=== PATIENT | female | born 1960 | race Caucasian/White ===

== ENCOUNTER → 2017-05-06 | Outpatient (CLI) | payer OTHER ==
[~2017-05-06] MED LIST: ACID1TAB7 PO; CARB200T3 PO; CARB200T4 PO; ESTR0.5G TD; HYDR20TA22 PO; LACT1CAP37 PO; LAMO100T PO; LAMO50TA3 PO; LAMO5TB.2 PO; LEVE750T37 PO; MULT-154 PO; MULT-672 PO; POLY17PO5 PO; POTASSIUM PO; PRAS25TA PO; RANI300T PO; TRAZ100T15 PO; VITAMIN D PO; VITAMIN E PO; ZOLP12.54 PO; ZONI100C2 PO; ZONI25CA PO
[2017-05-06 11:44] LABS: HEMATOCRIT 44.5 % (34.6-47.8); HEMOGLOBIN 14.9 g/dL (11.7-16.4); WHITE BLOOD COUNT 3.3 x10^3/uL (3.4-10)
[2017-05-06 11:55] LABS: ASPARTATE AMINO TRANSFERASE 29 U/L (15-37); BLOOD UREA NITROGEN 11 mg/dL (7-18)
== END | disposition home or self-care (01) ==
LOC: STAR 10:42
PROVIDERS: ATTEND Oral & Maxillofacial Surgery
DX: Z01.818 Encounter for other preprocedural examination (principal); M26.69 Other specified disorders of temporomandibular joint; R79.1 Abnormal coagulation profile; G40.909 Epilepsy, unspecified, not intractable, without status epilepticus; Z90.710 Acquired absence of both cervix and uterus; Z79.899 Other long term (current) drug therapy; Z88.8 Allergy status to other drugs, medicaments and biological substances; Z96.698 Presence of other orthopedic joint implants
CPT/HCPCS: 36415; 71020; 80053; 85025; 85610; 85730; 93005

== ENCOUNTER 2017-05-11 11:21 | Day surgery (SDC) | payer OTHER ==
[~2017-05-11] VITALS: Ht 152.4 cm; Wt 52.6 kg
[~2017-05-11 11:21] MED LIST changes: +BUPIVACAINE/PF 0.5% ONE; +EPINEPHRINE 1 MG/ML, 1ML ONE; +LIDOCAINE/PF 1%, 30ML ONE; +NEO/BACI/POLY/HC OINT 15GM ONE; +NEO/POLY/HC EAR SUSP 10ML ONE; +OXYMETAZOLINE NASAL SPRAY 0.05%, 15ML ONE
[2017-05-11] MEDS ORDERED: LACTATED RINGERS 1,000 ML IV SCH (11:39)
[2017-05-11 12:13] VITALS: BP 109/69
[2017-05-11] MEDS ORDERED: TRAZ100T15 PO (12:20)
[2017-05-11] MEDS ORDERED: MIDAZOLAM 1 MG/ML, 2ML ONE (12:42)
[2017-05-11] MEDS ORDERED: OXYMETAZOLINE NASAL SPRAY 0.05%, 15ML ONE (12:43)
[2017-05-11] MEDS ORDERED: FENTANYL PF 100 MCG/2ML ONE ×2 (12:43→17:10)
[2017-05-11] MEDS ORDERED: BUPIVACAINE/PF 0.5% ONE (12:44)
[2017-05-11] MEDS ORDERED: LIDOCAINE/PF 1%, 30ML ONE (12:44)
[2017-05-11] MEDS ORDERED: NEO/BACI/POLY/HC OINT 15GM ONE (12:44)
[2017-05-11] MEDS ORDERED: EPINEPHRINE 1 MG/ML, 1ML ONE (12:44)
[2017-05-11] MEDS ORDERED: NEO/POLY/HC EAR SUSP 10ML ONE (12:44)
[2017-05-11] MEDS ORDERED: SUCCINYLCHOLINE 20 MG/ML, 10ML ONE (13:22)
[2017-05-11] MEDS ORDERED: DEXAMETHASONE 4 MG/ML, 1ML ONE (13:22)
[2017-05-11] MEDS ORDERED: ROCURONIUM 10 MG/ML ONE (13:22)
[2017-05-11] MEDS ORDERED: ONDANSETRON 2MG/ML, 2ML ONE (13:22)
[2017-05-11] MEDS ORDERED: CEFAZOLIN 1,000 MG ONE (13:22)
[2017-05-11] MEDS ORDERED: PROPOFOL 10 MG/ML, 20ML ONE (13:22)
[2017-05-11] MEDS ORDERED: HYDROcodone/APAP 7.5-325MG/15ML UDC PO PRN (13:30)
[2017-05-11] MEDS ORDERED: EPHEDRINE 50 MG/ML, 1ML IVPush PRN (13:30)
[2017-05-11] MEDS ORDERED: ALBUTEROL SULFATE 2.5 MG/3 ML NPPB PRN (13:30)
[2017-05-11] MEDS ORDERED: LABETALOL 5MG/ML, 20ML IV PRN (13:30)
[2017-05-11] MEDS ORDERED: METOPROLOL 1 MG/ML, 5ML IV PRN (13:30)
[2017-05-11] MEDS ORDERED: METOCLOPRAMIDE 5 MG/ML, 2ML IV PRN (13:30)
[2017-05-11] MEDS ORDERED: hydrALAzine 20 MG/ML, 1ML IV PRN (13:30)
[2017-05-11] MEDS ORDERED: KETOROLAC 30 MG/1 ML IV PRN (13:30)
[2017-05-11] MEDS ORDERED: MIDAZOLAM 1 MG/ML, 2ML IV PRN (13:30)
[2017-05-11] MEDS ORDERED: ACETAMINOPHEN 325 MG TABLET PO PRN (13:30)
[2017-05-11] MEDS ORDERED: ONDANSETRON 2MG/ML, 2ML IVPush PRN (13:30)
[2017-05-11] MEDS ORDERED: NEOSPORIN OINT, 15GM ONE (16:25)
[2017-05-11] MEDS ORDERED: HYDROmorphone 2 MG/ML, 1ML ONE (17:10)
[2017-05-11] MEDS: FENTANYL PF 100 MCG/2ML IV PRN ×2 (17:15→17:23)
[2017-05-11] MEDS: HYDROmorphone 1 MG/ML, 1ML IV PRN ×4 (17:25→17:44)
[2017-05-11] MEDS ORDERED: KETOROLAC 30 MG/1 ML ONE (18:29)
[2017-05-11] MEDS ORDERED: HYDROmorphone 4MG TABLET PO PRN (18:30)
[2017-05-11] MEDS ORDERED: KETOROLAC 30 MG/1 ML IVPush SCH (18:30)
[2017-05-11] MEDS ORDERED: HYDROmorphone 2MG TABLET ONE (18:50)
== END 2017-05-11 20:20 ==
LOC: OUT 11:21
PROVIDERS: ATTEND Oral & Maxillofacial Surgery
DX: M26.69 Other specified disorders of temporomandibular joint (principal); M26.632 Articular disc disorder of left temporomandibular joint; M26.622 Arthralgia of left temporomandibular joint; J45.909 Unspecified asthma, uncomplicated; K21.9 Gastro-esophageal reflux disease without esophagitis; Z88.6 Allergy status to analgesic agent; Z88.5 Allergy status to narcotic agent; Z90.710 Acquired absence of both cervix and uterus; Z98.890 Other specified postprocedural states
CPT/HCPCS: 21240; 88304; 88311; J0171; J0330; J0690; J1100; J1170; J1885; J2250; J2405; J2704; J3010; J3490; J7120

== ENCOUNTER → 2017-09-08 | Outpatient (CLI) | payer OTHER ==
[~2017-09-08] MED LIST changes: -BUPIVACAINE/PF 0.5% ONE; -EPINEPHRINE 1 MG/ML, 1ML ONE; -LIDOCAINE/PF 1%, 30ML ONE; -NEO/BACI/POLY/HC OINT 15GM ONE; -NEO/POLY/HC EAR SUSP 10ML ONE; -OXYMETAZOLINE NASAL SPRAY 0.05%, 15ML ONE
== END | disposition home or self-care (01) ==
LOC: CFH 10:49
DX: Z12.31 Encounter for screening mammogram for malignant neoplasm of breast (principal); N80.9 Endometriosis, unspecified
CPT/HCPCS: 77063; G0202

== ENCOUNTER 2017-09-14 13:29 | Emergency (ER) | payer OTHER ==
[~2017-09-14] VITALS: Ht 154.9 cm; Wt 54.0 kg
[2017-09-14] MEDS ORDERED: LAMOTRIGINE 200 MG TABLET PO ONE (14:00)
[2017-09-14 14:22] LABS: HEMATOCRIT 39.9 % (34.6-47.8); HEMOGLOBIN 13.6 g/dL (11.7-16.4); WHITE BLOOD COUNT 3.3 x10^3/uL (3.4-10)
[2017-09-14 14:23] LABS: BLOOD UREA NITROGEN 20 mg/dL (7-18)
[2017-09-14 15:49] VITALS: BP 110/78
== END 2017-09-14 15:51 | disposition home or self-care (01) ==
LOC: ED 15:45
DX: R56.9 Unspecified convulsions (principal); G43.909 Migraine, unspecified, not intractable, without status migrainosus; Z90.49 Acquired absence of other specified parts of digestive tract
CPT/HCPCS: 36415; 80048; 82040; 85025; 99284

== ENCOUNTER 2018-01-24 21:44 | Inpatient (IN) | payer OTHER, MEDICARE ==
[~2018-01-24] VITALS: Ht 152.4 cm; Wt 58.7 kg
[2018-01-24] MEDS ORDERED: LORazepam 1MG TABLET PO ONE (22:00)
[2018-01-24 22:19] LABS: BASOPHILS # (AUTO) 0.02 x10^3/uL (0-0.1); BASOPHILS % (AUTO) 1 % (0-1); EOSINOPHILS # (AUTO) 0.01 x10^3/uL (0-0.4); EOSINOPHILS % (AUTO) 0 % (1-7); LYMPHOCYTES # (AUTO) 1.28 x10^3/uL (1-3.4); LYMPHOCYTES % (AUTO) 36 % (22-44); MD NO; MEAN CORPUSCULAR HEMOGLOBIN 30.2 pg (27.0-34.8); MEAN CORPUSCULAR HGB CONC 33.5 g/dL (32.4-35.8); MEAN CORPUSCULAR VOLUME 90.2 fL (80-100); MEAN PLATELET VOLUME 6.5 fL (7.4-10.4); MONOCYTES # (AUTO) 0.36 x10^3/uL (0.2-0.8); MONOCYTES % (AUTO) 10 % (2-9); NEUTROPHILS # (AUTO) 1.92 x10^3/uL (1.8-6.8); NEUTROPHILS % (AUTO) 53 % (42-75); PLATELET COUNT 255 x10^3/uL (130-400); RED BLOOD COUNT 4.07 x10^6/uL (3.82-5.3)
[2018-01-24 22:29] LABS: ALANINE AMINOTRANSFERASE 42 U/L (12-78); ALBUMIN 3.7 g/dL (3.4-5.0); ANION GAP 8 mmol/L (5-15); CALCIUM 8.7 mg/dL (8.5-10.1); CHLORIDE 109 mmol/L (98-107); CREATININE 1.31 mg/dL (0.55-1.02)
[2018-01-24] MEDS ORDERED: DIPHENHYDRAMINE 25 MG CAPSULE PO ONE (22:30)
[2018-01-24 22:31] LABS: ALKALINE PHOSPHATASE 93 U/L (45-117); BILIRUBIN,TOTAL 0.2 mg/dL (0.2-1.0); TOTAL PROTEIN 6.3 g/dL (6.4-8.2)
[2018-01-24] MEDS ORDERED: LORazepam 1MG TABLET ONE (23:10)
[2018-01-24] MEDS ORDERED: DIPHENHYDRAMINE 25 MG CAPSULE ONE (23:10)
[2018-01-24 23:59] LABS: MICROSCOPIC NOT IND
[2018-01-25 00:01] LABS: CULTURE INDICATED? NO
[2018-01-25] MEDS: SODIUM CHLORIDE 0.9% 1,000 ML IV SCH ×2 (00:03→08:34)
[2018-01-25 00:10] LABS: AMPHETAMINE SCREEN, URINE Negative (Negative); BARBITURATE SCREEN, URINE Negative (Negative); BENZODIAZEPINE SCREEN, URINE Negative (Negative); CANNABINOID SCREEN, URINE Negative (Negative); COCAINE SCREEN, URINE Negative (Negative); METHADONE SCREEN, URINE Negative (Negative); OPIATE SCREEN, URINE Negative (Negative)
[2018-01-25] MEDS ORDERED: DOCUSATE 100 MG CAPSULE PO PRN (00:30)
[2018-01-25] MEDS ORDERED: POLYETHYLENE GLYCOL 17 GM PACKET PO PRN (00:30)
[2018-01-25] MEDS ORDERED: BISACODYL 10 MG SUPP PR PRN (00:30)
[2018-01-25] MEDS ORDERED: ONDANSETRON 2MG/ML, 2ML IVPush PRN (00:30)
[2018-01-25] MEDS: HEPARIN 5,000 UNITS/ML, 1ML SQ SCH ×3 (00:30→16:53)
[2018-01-25] MEDS ORDERED: ACETAMINOPHEN 325 MG TABLET PO PRN (00:30)
[2018-01-25] MEDS ORDERED: hydrALAzine 20 MG/ML, 1ML IVPush PRN (00:30)
[2018-01-25] MEDS ORDERED: LABETALOL 5MG/ML, 20ML IVPush PRN (00:30)
[2018-01-25] MEDS: LAMOTRIGINE 100 MG TABLET PO SCH ×3 (00:30→21:21)
[2018-01-25 00:34] LABS: HEMOGLOBIN A1C 4.5 % (4.2-6.3)
[2018-01-25 00:35] LABS: FREE T4 (FREE THYROXINE) 0.94 ng/dL (0.76-1.46); THYROID STIMULATING HORMONE 2.45 mIU/L (0.358-3.740)
[2018-01-25] MEDS: ZONISAMIDE 50 MG CAPSULE PO SCH ×2 (03:27→21:21)
[2018-01-25] MEDS ORDERED: LORazepam 2 MG/ML, 1ML ONE ×2 (03:32→06:12)
[2018-01-25] MEDS: LORazepam 2 MG/ML, 1ML IVPush PRN ×2 (03:34→06:20)
[2018-01-25] MEDS ORDERED: HEPARIN 5,000 UNITS/ML, 1ML ONE ×2 (05:34→08:28)
[2018-01-25] MEDS ORDERED: ASPIRIN 325 MG TABLET EC ONE (08:30)
[2018-01-25] MEDS: ASPIRIN 325 MG TABLET EC PO SCH (08:34)
[2018-01-25] MEDS ORDERED: MULTIVITAMIN 1 TABLET PO SCH (09:00)
[2018-01-25] MEDS: MULTIVITAMINS/MINERALS TABLET PO SCH (09:50)
[2018-01-25] MEDS: FAMOTIDINE 40 MG TABLET PO SCH (09:50)
[2018-01-25 17:50] LABS: MICROSCOPIC NOT IND
[2018-01-25 17:55] LABS: CULTURE INDICATED? NO
[2018-01-25 18:57] VITALS: BP 109/71
[2018-01-25] MEDS ORDERED: ATORVASTATIN 20 MG TABLET PO SCH (21:00)
[2018-01-25] MEDS ORDERED: ZOLPIDEM 10MG TABLET PO SCH (21:00)
[2018-01-25] MEDS ORDERED: TRAZODONE 100MG TABLET PO SCH (21:30)
[2018-01-26] MEDS: HEPARIN 5,000 UNITS/ML, 1ML SQ SCH ×2 (00:30→09:52)
[2018-01-26 00:46] VITALS: BP 95/61
[2018-01-26] MEDS: ASPIRIN 325 MG TABLET EC PO SCH (06:03)
[2018-01-26 06:05] LABS: BASOPHILS # (AUTO) 0.02 x10^3/uL (0-0.1); BASOPHILS % (AUTO) 1 % (0-1); EOSINOPHILS # (AUTO) 0.01 x10^3/uL (0-0.4); EOSINOPHILS % (AUTO) 0 % (1-7); LYMPHOCYTES # (AUTO) 1.14 x10^3/uL (1-3.4); LYMPHOCYTES % (AUTO) 36 % (22-44); MD NO; MEAN CORPUSCULAR HEMOGLOBIN 30.1 pg (27.0-34.8); MEAN CORPUSCULAR HGB CONC 33.1 g/dL (32.4-35.8); MEAN CORPUSCULAR VOLUME 91.1 fL (80-100); MEAN PLATELET VOLUME 6.4 fL (7.4-10.4); MONOCYTES # (AUTO) 0.31 x10^3/uL (0.2-0.8); MONOCYTES % (AUTO) 10 % (2-9); NEUTROPHILS # (AUTO) 1.64 x10^3/uL (1.8-6.8); NEUTROPHILS % (AUTO) 53 % (42-75); PLATELET COUNT 219 x10^3/uL (130-400); RED BLOOD COUNT 4.04 x10^6/uL (3.82-5.3); RED CELL DISTRIBUTION WIDTH 13.5 % (9.6-15.2)
[2018-01-26] MEDS: LORazepam 2 MG/ML, 1ML IVPush PRN (06:10)
[2018-01-26 06:20] LABS: CHLORIDE 113 mmol/L (98-107)
[2018-01-26 06:29] LABS: ALANINE AMINOTRANSFERASE 29 U/L (12-78); ALBUMIN 3.2 g/dL (3.4-5.0); ALKALINE PHOSPHATASE 78 U/L (45-117); ANION GAP 6 mmol/L (5-15); BILIRUBIN,TOTAL 0.3 mg/dL (0.2-1.0); CALCIUM 8.6 mg/dL (8.5-10.1); CHOL/HDL RATIO 2.9; CHOLESTEROL, TOTAL 166 mg/dL (140-239); CREATININE 1.06 mg/dL (0.55-1.02); HDL CHOL % 34 % (28-40); HDL CHOLESTEROL (DIRECT) 57 mg/dL (40-60); LDL CHOLESTEROL,CALCULATED 84 mg/dL (54-169); LDL/HDL RATIO 1.5 (0.5-3.0); TOTAL PROTEIN 5.6 g/dL (6.4-8.2); TRIGLYCERIDES 123 mg/dL (50-200); VLDL CHOLESTEROL 25 mg/dL (0-25)
[2018-01-26] MEDS: MULTIVITAMINS/MINERALS TABLET PO SCH (09:52)
[2018-01-26] MEDS: LAMOTRIGINE 100 MG TABLET PO SCH (09:52)
[2018-01-26] MEDS: FAMOTIDINE 40 MG TABLET PO SCH (09:52)
[2018-01-26 10:51] VITALS: BP 107/70
[2018-01-26] MEDS ORDERED: GABA-826 PO (11:40)
[2018-01-26] MEDS ORDERED: GABAPENTIN 100 MG CAPSULE PO SCH (12:00)
[2018-01-26 13:30] VITALS: BP 101/65
[2018-01-26] MEDS ORDERED: TRAZODONE 100MG TABLET PO SCH (21:00)
== END 2018-01-26 16:23 | disposition home or self-care (01) | DRG 101 ==
LOC: ED 23:30 → EDIP 23:59 → 4WST 01-25 15:58 → DCLOUNGE 01-26 16:00
PROVIDERS: ADMIT Internal Medicine; ATTEND Internal Medicine
DX: G40.409 Other generalized epilepsy and epileptic syndromes, not intractable, without status epilepticus (principal); N18.3 Chronic kidney disease, stage 3 (moderate); K21.9 Gastro-esophageal reflux disease without esophagitis; Z86.73 Personal history of transient ischemic attack (TIA), and cerebral infarction without residual deficits; Z90.710 Acquired absence of both cervix and uterus
CPT/HCPCS: 36415; 70450; 70551; 71045; 80053; 80061; 80307; 81003; 82550; 83036; 83735; 84439; 84443; 85025; 93005; 93306; 93880; 99285; J1644; J2060; J7030; Q0163

== ENCOUNTER → 2018-02-08 | Outpatient (CLI) | payer MEDICARE, OTHER ==
[~2018-02-08] MED LIST changes: +FENTANYL PF 100 MCG/2ML ONE; +GABA-826 PO; +MIDAZOLAM 1 MG/ML, 5ML ONE
== END | disposition home or self-care (01) ==
LOC: RAD 08:32
PROVIDERS: ATTEND Family Medicine
DX: M47.22 Other spondylosis with radiculopathy, cervical region (principal); M48.02 Spinal stenosis, cervical region; M47.896 Other spondylosis, lumbar region; M41.86 Other forms of scoliosis, lumbar region
CPT/HCPCS: 72141; 72148; 99156; 99157; J2250; J3010

== ENCOUNTER → 2018-08-03 | Outpatient (CLI) | payer OTHER ==
[~2018-08-03] MED LIST changes: -FENTANYL PF 100 MCG/2ML ONE; -MIDAZOLAM 1 MG/ML, 5ML ONE; +OMNIPAQUE 350 MG/ML, 100ML BOTTLE ONE; +TRAZ-137 PO; -TRAZ100T15 PO
[2018-08-03 17:10] LABS: CREATININE 1.13 mg/dL (0.55-1.02)
== END | disposition home or self-care (01) ==
LOC: RAD 16:16
PROVIDERS: ATTEND Nurse Practitioner Family
DX: R10.31 Right lower quadrant pain (principal)
CPT/HCPCS: 36415; 74177; 82565; Q9967

== ENCOUNTER → 2018-09-02 | Outpatient (CLI) | payer OTHER ==
[~2018-09-02] MED LIST changes: -OMNIPAQUE 350 MG/ML, 100ML BOTTLE ONE
== END | disposition home or self-care (01) ==
LOC: PETCFH 08:21
PROVIDERS: ATTEND Nurse Practitioner Family
DX: K30 Functional dyspepsia (principal); R11.0 Nausea
CPT/HCPCS: 78264; A9541

== ENCOUNTER → 2018-09-28 | Outpatient (CLI) | payer OTHER | END | disposition home or self-care (01) | LOC: CFH 13:00 | PROVIDERS: ATTEND Obstetrics & Gynecology | DX: N64.4 Mastodynia (principal) | CPT/HCPCS: 76641; 77066; G0279 ==

== ENCOUNTER 2018-12-22 10:24 | Outpatient (CLI) | payer OTHER ==
[~2018-12-22 10:24] MED LIST changes: -HYDR20TA22 PO; +HYDR20TA23 PO
[2018-12-22] MEDS ORDERED: SUCR1TAB PO (11:32)
[2018-12-22] MEDS ORDERED: RANI150T23 PO (11:32)
[2018-12-22] MEDS ORDERED: ATOR10TA PO (11:32)
[2018-12-22] MEDS ORDERED: [UNRECOGNIZED DRUG - CODE] PO (11:32)
== END 2018-12-22 23:59 | disposition home or self-care (01) ==
LOC: STAR 10:24
PROVIDERS: ATTEND Obstetrics & Gynecology
DX: Z02.9 Encounter for administrative examinations, unspecified (principal)

== ENCOUNTER 2019-01-03 13:31 | Inpatient (IN) | payer OTHER ==
[~2019-01-03] VITALS: Ht 152.4 cm; Wt 62.0 kg
[~2019-01-03 13:31] MED LIST changes: +ATOR10TA PO; +RANI150T23 PO; +SUCR1TAB PO; +[UNRECOGNIZED DRUG - CODE] PO
[2019-01-03] MEDS ORDERED: LIDOCAINE-MPF 1%, 2ML ONE (14:08)
[2019-01-03] MEDS ORDERED: LACTATED RINGERS 1,000 ML IV SCH (14:16)
[2019-01-03] MEDS ORDERED: LIDOCAINE-MPF 1%, 2ML INFIL ONE (14:30)
[2019-01-03] MEDS ORDERED: ESTROGENS CONJUGATED VAG CRM 0.625MG/1G, 30GM ONE (15:21)
[2019-01-03] MEDS ORDERED: EPINEPHRINE 1 MG/ML, 1ML ONE (15:21)
[2019-01-03] MEDS ORDERED: BUPIVACAINE/PF 0.25% ONE (15:21)
[2019-01-03] MEDS ORDERED: FENTANYL PF 250 MCG/5ML ONE (15:29)
[2019-01-03] MEDS ORDERED: MIDAZOLAM 1 MG/ML, 2ML ONE (15:29)
[2019-01-03] MEDS ORDERED: PROPOFOL 50 ML ONE (15:29)
[2019-01-03] MEDS ORDERED: ONDANSETRON 2MG/ML, 2ML ONE (15:39)
[2019-01-03] MEDS ORDERED: CEFAZOLIN 1,000 MG ONE (15:39)
[2019-01-03] MEDS ORDERED: DEXAMETHASONE 4 MG/ML, 1ML ONE (15:39)
[2019-01-03] MEDS ORDERED: FENTANYL PF 100 MCG/2ML ONE (16:46)
[2019-01-03] MEDS ORDERED: OXYcodone 5 MG/5 ML ORAL.SOL UDC ONE (16:46)
[2019-01-03] MEDS ORDERED: LORazepam 2 MG/ML, 1ML ONE (16:54)
[2019-01-03] MEDS ORDERED: hydrALAzine 20 MG/ML, 1ML IV PRN (17:00)
[2019-01-03] MEDS ORDERED: EPHEDRINE 50 MG/ML, 1ML IM PRN (17:00)
[2019-01-03] MEDS ORDERED: PROMETHAZINE 25 MG SUPP PR PRN (17:00)
[2019-01-03] MEDS ORDERED: MIDAZOLAM 1 MG/ML, 2ML IV PRN (17:00)
[2019-01-03] MEDS ORDERED: DIPHENHYDRAMINE 50 MG/ML, 1ML IVPush PRN (17:00)
[2019-01-03] MEDS ORDERED: FENTANYL PF 100 MCG/2ML IV PRN (17:00)
[2019-01-03] MEDS ORDERED: EPHEDRINE 50 MG/ML, 1ML IVPush PRN (17:00)
[2019-01-03] MEDS ORDERED: LORazepam 2 MG/ML, 1ML IVPush ONE (17:00)
[2019-01-03] MEDS ORDERED: ACETAMINOPHEN 325 MG TABLET PO PRN (17:00)
[2019-01-03] MEDS ORDERED: DIAZEPAM 5 MG/ML, 2ML IVPush PRN (17:00)
[2019-01-03] MEDS ORDERED: ONDANSETRON ODT 8 MG PO PRN (17:00)
[2019-01-03] MEDS ORDERED: METOPROLOL 1 MG/ML, 5ML IV PRN (17:00)
[2019-01-03] MEDS ORDERED: PROMETHAZINE 12.5 MG SUPP PR PRN (17:00)
[2019-01-03] MEDS ORDERED: HYDROmorphone 2 MG/ML, 1ML IVPush PRN (17:00)
[2019-01-03] MEDS ORDERED: ONDANSETRON 2MG/ML, 2ML IV PRN (17:00)
[2019-01-03] MEDS ORDERED: PROMETHAZINE 25 MG/ML, 1ML IV PRN (17:00)
[2019-01-03] MEDS ORDERED: OXYcodone 5 MG/5 ML ORAL.SOL UDC PO PRN (17:30)
[2019-01-03] MEDS: SODIUM CHLORIDE 0.9% 1,000 ML IV SCH (18:34)
[2019-01-03] MEDS: ENOXAPARIN 40 MG/0.4 ML SQ SCH (19:00)
[2019-01-03] MEDS ORDERED: hydrALAzine 20 MG/ML, 1ML IVPush PRN (19:00)
[2019-01-03] MEDS: LEVETIRACETAM 1,000 MG in SODIUM CHLORIDE 0.9% 100 ML IV SCH (19:00)
[2019-01-03] MEDS: SUCRALFATE 1 GM TABLET PO SCH (21:00)
[2019-01-03] MEDS: TRAZODONE 100MG TABLET PO SCH (21:00)
[2019-01-03] MEDS: ZONISAMIDE 50 MG CAPSULE PO SCH (21:00)
[2019-01-03] MEDS: ATORVASTATIN 10 MG TABLET PO SCH (23:04)
[2019-01-04 02:23] VITALS: BP 96/68
[2019-01-04] MEDS: SODIUM CHLORIDE 0.9% 1,000 ML IV SCH ×2 (04:51→16:00)
[2019-01-04] MEDS: ACETAMINOPHEN 325 MG TABLET PO PRN ×3 (04:51→18:00)
[2019-01-04 05:41] LABS: BASOPHILS # (AUTO) 0.05 x10^3/uL (0-0.1); BASOPHILS % (AUTO) 1 % (0-1); EOSINOPHILS # (AUTO) 0.01 x10^3/uL (0-0.4); EOSINOPHILS % (AUTO) 0 % (1-7); LYMPHOCYTES % (AUTO) 19 % (22-44); MD NO; MEAN CORPUSCULAR HEMOGLOBIN 30.1 pg (27.0-34.8); MEAN CORPUSCULAR HGB CONC 34.3 g/dL (32.4-35.8); MEAN CORPUSCULAR VOLUME 87.9 fL (80-100); MEAN PLATELET VOLUME 6.9 fL (7.4-10.4); MONOCYTES # (AUTO) 0.47 x10^3/uL (0.2-0.8); MONOCYTES % (AUTO) 9 % (2-9); NEUTROPHILS # (AUTO) 3.72 x10^3/uL (1.8-6.8); NEUTROPHILS % (AUTO) 71 % (42-75); PLATELET COUNT 210 x10^3/uL (130-400); RED BLOOD COUNT 4.09 x10^6/uL (3.82-5.3); RED CELL DISTRIBUTION WIDTH 14.4 % (9.6-15.2)
[2019-01-04 05:52] LABS: CHLORIDE 113 mmol/L (98-107)
[2019-01-04 06:01] LABS: ALANINE AMINOTRANSFERASE 88 U/L (12-78); ALKALINE PHOSPHATASE 95 U/L (45-117); ANION GAP 5 mmol/L (5-15); BILIRUBIN,TOTAL 0.3 mg/dL (0.2-1.0); CALCIUM 7.8 mg/dL (8.5-10.1); CREATININE 1.04 mg/dL (0.55-1.02); TOTAL PROTEIN 5.2 g/dL (6.4-8.2)
[2019-01-04] MEDS: LEVETIRACETAM 1,000 MG in SODIUM CHLORIDE 0.9% 100 ML IV SCH (06:24)
[2019-01-04 07:25] VITALS: BP 98/70
[2019-01-04] MEDS: LORazepam 2 MG/ML, 1ML IVPush PRN ×2 (08:51→17:21)
[2019-01-04] MEDS: OXCARBAZEPINE 600 MG PO SCH (09:30)
[2019-01-04] MEDS ORDERED: DEXTROSE 4 GM TAB.CHEW PO PRN (09:30)
[2019-01-04] MEDS ORDERED: GLUCAGON 1 MG IM PRN (09:30)
[2019-01-04] MEDS: SODIUM CHLORIDE FLUSH 10ML SYR IVF SCH ×2 (09:30→20:27)
[2019-01-04] MEDS ORDERED: DEXTROSE 50%, 50ML SYRINGE IVPush PRN (09:30)
[2019-01-04] MEDS: ZONISAMIDE 50 MG CAPSULE PO SCH ×2 (09:36→20:25)
[2019-01-04] MEDS: FAMOTIDINE 20 MG TABLET PO SCH (09:37)
[2019-01-04] MEDS: SUCRALFATE 1 GM TABLET PO SCH ×3 (09:37→20:25)
[2019-01-04 14:00] VITALS: BP 103/74
[2019-01-04] MEDS ORDERED: LORazepam 2 MG/ML, 1ML IVPush PRN (18:21)
[2019-01-04 18:43] VITALS: BP 104/69
[2019-01-04] MEDS: TRAZODONE 100MG TABLET PO SCH (20:25)
[2019-01-04] MEDS: ATORVASTATIN 10 MG TABLET PO SCH (20:25)
[2019-01-04] MEDS: ENOXAPARIN 40 MG/0.4 ML SQ SCH (20:27)
[2019-01-04] MEDS ORDERED: FAMOTIDINE 40 MG TABLET PO SCH (21:00)
[2019-01-05 00:16] VITALS: BP 95/61
[2019-01-05] MEDS: SODIUM CHLORIDE 0.9% 1,000 ML IV SCH ×2 (02:23→12:00)
[2019-01-05] MEDS: ACETAMINOPHEN 325 MG TABLET PO PRN ×2 (04:08→09:02)
[2019-01-05 08:13] VITALS: BP 117/78
[2019-01-05] MEDS: SUCRALFATE 1 GM TABLET PO SCH (09:02)
[2019-01-05] MEDS: ZONISAMIDE 50 MG CAPSULE PO SCH (09:02)
[2019-01-05] MEDS: FAMOTIDINE 20 MG TABLET PO SCH (09:02)
[2019-01-05] MEDS: SODIUM CHLORIDE FLUSH 10ML SYR IVF SCH (09:03)
[2019-01-05] MEDS: OXCARBAZEPINE 600 MG PO SCH (09:04)
[2019-01-05] MEDS ORDERED: OXYC-302 PO (14:56)
== END 2019-01-05 15:10 | disposition home or self-care (01) | DRG 747 ==
LOC: OR 13:31 → ORIP 18:34 → 4EST 21:22 → 4WST 01-04 17:21 → DCLOUNGE 01-05 14:49
PROVIDERS: ADMIT Obstetrics & Gynecology; ATTEND Obstetrics & Gynecology
PROC: 0WBN0ZZ Excision of Female Perineum, Open Approach (ICD-10-PCS; principal; 2019-01-03 15:30)
DX: N94.10 Unspecified dyspareunia (principal); G40.909 Epilepsy, unspecified, not intractable, without status epilepticus; N18.9 Chronic kidney disease, unspecified; K21.9 Gastro-esophageal reflux disease without esophagitis; Z88.5 Allergy status to narcotic agent; Z83.3 Family history of diabetes mellitus; Z82.3 Family history of stroke; Z90.49 Acquired absence of other specified parts of digestive tract; Z88.6 Allergy status to analgesic agent
CPT/HCPCS: 36415; J3490; 80053; 80157; 82962; 85025; 95819; G0378; J0171; J0690; J1100; J1650; J1953; J2250; J2405; J2704; J3010; J2060; J7030; J7120

== ENCOUNTER → 2019-02-07 | Outpatient (CLI) | payer OTHER ==
[~2019-02-07] MED LIST changes: +OXYC-302 PO
== END | disposition home or self-care (01) ==
LOC: CARD 12:22
PROVIDERS: ATTEND Specialist
DX: I67.2 Cerebral atherosclerosis (principal); G40.89 Other seizures; I74.2 Embolism and thrombosis of arteries of the upper extremities
CPT/HCPCS: 95816

== ENCOUNTER 2019-03-30 07:21 | Outpatient (CLI) | payer OTHER | END 2019-03-30 23:59 | disposition home or self-care (01) | LOC: RAD 07:21 | PROVIDERS: ATTEND Internal Medicine Gastroenterology | DX: K21.9 Gastro-esophageal reflux disease without esophagitis (principal); R74.8 Abnormal levels of other serum enzymes; Z98.890 Other specified postprocedural states | CPT/HCPCS: 74241 ==

== ENCOUNTER 2019-03-30 10:48 | Emergency (ER) | payer OTHER ==
[~2019-03-30] VITALS: Ht 152.4 cm; Wt 58.4 kg
[2019-03-30 10:51] VITALS: BP 106/70
[2019-03-30] MEDS ORDERED: LIDOCAINE-MPF 1%, 5ML ONE (11:11)
[2019-03-30] MEDS ORDERED: DIPH,PERTUSS(ACELL),TET VAC/PF 0.5 ML IM-VACC ONE ×2 (11:12→11:30)
--- NOTE | 2019-03-30 11:16 | NUR ---
ASSUMED CARE OF PT AT THIS TIME FROM TRIAGE. PT WAS EVALUATED BY JULIANNE WHIET. 58 Y/O F REPORTS "CUT MY FINGER SHARPENING KNIFE." BLEEDING CONTROLLED. LAC NOTED TO RIGHT INDEX FINGER. JULIANNE WHITE AT BEDSIDE TO ADMIN LIDO TO LAC. NAD NOTED. RESP REGULAR AND UNLABORED. CALL LIGHT IN REACH. FALL PRECAUTIONS IN PLACE. A&OX4. CMS INTACT. RADIAL PULSE NORMAL AND STRONG.
--- NOTE | 2019-03-30 11:22 | NUR ---
RN VASCULAR AT BEDSIDE TO CLEAN WOUND PER JULIANNE WHITE
--- NOTE | 2019-03-30 11:25 | NUR ---
JULIANNE WHITE AT [facility] FOR LAC REPAIR
[2019-03-30] MEDS ORDERED: LIDOCAINE-MPF 1%, 5ML INFIL ONE (11:30)
--- NOTE | 2019-03-30 11:50 | NUR ---
REPORT AND CARE TO AR CHEW AT THIS TIME. 3 SUTURES PLACED BY JULIANNE WHITE. DRESSING IN PLACE BY CINDY, CDI. CMS INTACT.
--- NOTE | 2019-03-30 12:00 | NUR ---
D/C INSTRUCTIONS, MEDS & F/U APPT RV'WD WITH PT, SHE VERBALIZES UNDERSTANDING. INSTRUCTED TO HAVE SUTURES REMOVED IN 10 DAYS. RX GIVEN X1. PT AMBULATED OUT OF ED WITHOUT DIFFICULTY.
== END 2019-03-30 12:11 | disposition home or self-care (01) ==
LOC: ED 11:59
DX: S61.210A Laceration without foreign body of right index finger without damage to nail, initial encounter (principal); X58.XXXA Exposure to other specified factors, initial encounter; Y93.89 Activity, other specified; Y92.009 Unspecified place in unspecified non-institutional (private) residence as the place of occurrence of the external cause; Y99.8 Other external cause status
CPT/HCPCS: 12001; 90471; 90715

== ENCOUNTER 2019-10-02 19:14 | Emergency (ER) | payer OTHER ==
[~2019-10-02] VITALS: Ht 152.4 cm; Wt 62.1 kg
[~2019-10-02 19:14] MED LIST changes: +CEFD300C37 PO; +PANT20TA3 PO; +RANI-467 PO; -RANI150T23 PO; +ZONI50CA2 HOMEMEDPO
[2019-10-02 19:23] VITALS: BP 136/73
[2019-10-02 20:15] LABS: BASOPHILS # (AUTO) 0.05 x10^3/uL (0-0.1); BASOPHILS % (AUTO) 2 % (0-1); EOSINOPHILS # (AUTO) 0.01 x10^3/uL (0-0.4); EOSINOPHILS % (AUTO) 0 % (1-7); LYMPHOCYTES # (AUTO) 1.06 x10^3/uL (1-3.4); LYMPHOCYTES % (AUTO) 34 % (22-44); MD NO; MEAN CORPUSCULAR HEMOGLOBIN 31.3 pg (27.0-34.8); MEAN CORPUSCULAR VOLUME 89.3 fL (80-100); MONOCYTES # (AUTO) 0.29 x10^3/uL (0.2-0.8); MONOCYTES % (AUTO) 9 % (2-9); NEUTROPHILS # (AUTO) 1.72 x10^3/uL (1.8-6.8); NEUTROPHILS % (AUTO) 55 % (42-75); PLATELET COUNT 297 x10^3/uL (130-400); RED CELL DISTRIBUTION WIDTH 13.6 % (9.6-15.2)
[2019-10-02 20:28] LABS: ALBUMIN 3.6 g/dL (3.4-5.0); ANION GAP 10 mmol/L (5-15); CALCIUM 7.7 mg/dL (8.5-10.1); CHLORIDE 114 mmol/L (98-107); CREATININE 1.12 mg/dL (0.55-1.02)
[2019-10-02 20:30] LABS: ALKALINE PHOSPHATASE 112 U/L (45-117); BILIRUBIN,TOTAL 0.5 mg/dL (0.2-1.0)
[2019-10-02 21:14] LABS: ALANINE AMINOTRANSFERASE 36 U/L (12-78)
--- NOTE | 2019-10-02 21:15 | NUR ---
;pt nina from lobby to room 37
== END 2019-10-02 21:53 | disposition home or self-care (01) ==
LOC: ED 21:45
DX: M79.652 Pain in left thigh (principal); M79.662 Pain in left lower leg; R60.0 Localized edema; K21.9 Gastro-esophageal reflux disease without esophagitis; Z90.49 Acquired absence of other specified parts of digestive tract; Z98.51 Tubal ligation status; Z90.710 Acquired absence of both cervix and uterus; Z87.891 Personal history of nicotine dependence
CPT/HCPCS: 36415; 80053; 85025; 99284

== ENCOUNTER → 2019-10-12 | Outpatient (CLI) | payer OTHER | END | disposition home or self-care (01) | LOC: CFH 12:42 | PROVIDERS: ATTEND Obstetrics & Gynecology | DX: Z12.31 Encounter for screening mammogram for malignant neoplasm of breast (principal); N64.89 Other specified disorders of breast; Z98.82 Breast implant status | CPT/HCPCS: 77063; 77067 ==

== ENCOUNTER 2020-01-05 16:17 | Emergency (ER) | payer OTHER ==
[~2020-01-05] VITALS: Ht 152.4 cm; Wt 57.0 kg
[~2020-01-05 16:17] MED LIST changes: -LAMO100T PO; +LAMO100T8 PO; -TRAZ-137 PO; +TRAZ-175 PO; -ZONI100C2 PO; +ZONI100C29 PO; +ZONI50CA10 HOMEMEDPO; -ZONI50CA2 HOMEMEDPO
--- NOTE | 2020-01-05 16:39 | NUR ---
THIS IS A 59 YO F BIB EMS W/ C/O SEIZURESX4 POST EGD. PT RECEIVED PROPOFOL, SIMETHICONE AND LIDOCAINE FOR PROCEDURE. REPORTS SHE USUALLY TAKES ZONISAMIDE AND OXYTELLAR BUT DID NOT TAKE MEDS TODAY DUE TO BEING TOLD NPO FOR PROCEDURE. RECEIVED 6MG OF VERSED IRRIGATION WORKER FROM GI DURING SEIZURES. PT AROUSES TO VERBAL STIMULI. SIDE RAILS UPX2, SUCTION SET UP. PT CONNECTED TO ALL MONITORING. SIMEON WHITE AT BEDSIDE.
[2020-01-05] MEDS ORDERED: SODIUM CHLORIDE 0.9% 1,000 ML IV ONE (16:44)
[2020-01-05] MEDS ORDERED: SODIUM CHLORIDE FLUSH 10ML SYR IVF ONE (17:00)
--- NOTE | 2020-01-05 17:03 | NUR ---
1L NS STARTED. CONNECTED TO ALL MONITORING. FAMILY AT BEDSIDE.
--- NOTE | 2020-01-05 17:17 | NUR ---
Afshin lopez in EDM - 01/05/20 at 1720 by CAMPBELL PT APPEARS SLIGHTLY MORE ALERT. WHEN ASKED IF PT WANTED PILLOW, PT RAISED HEAD. WHEN ASKED PT TO LOOK AT THIS RN SHE STARTED TO LOOK IN MY DIRECTION BUT DID NOT FULLY MAKE EYE CONTACT.
--- NOTE | 2020-01-05 17:20 | NUR ---
PT MORE AWAKE AND RESPONSIVE. A&OX3. PT THOUGHT SHE WAS STILL AT GI CLINIC. WILL UPDATE SIMEON MO.
[2020-01-05 17:32] VITALS: BP 113/75
[2020-01-05 17:43] LABS: ALBUMIN 3.5 g/dL (3.4-5.0); ANION GAP 4 mmol/L (5-15); CALCIUM 8.7 mg/dL (8.5-10.1); CHLORIDE 111 mmol/L (98-107)
[2020-01-05 17:47] LABS: ALANINE AMINOTRANSFERASE 21 U/L (12-78); ALKALINE PHOSPHATASE 114 U/L (45-117); BILIRUBIN,TOTAL 0.2 mg/dL (0.2-1.0); CREATININE 1.11 mg/dL (0.55-1.02); TOTAL PROTEIN 6.5 g/dL (6.4-8.2)
[2020-01-05 17:49] LABS: BASOPHILS # (AUTO) 0.01 x10^3/uL (0-0.1); BASOPHILS % (AUTO) 0 % (0-1); EOSINOPHILS % (AUTO) 0 % (1-7); LYMPHOCYTES # (AUTO) 0.78 x10^3/uL (1-3.4); LYMPHOCYTES % (AUTO) 25 % (22-44); MD SCAN; MEAN CORPUSCULAR HEMOGLOBIN 30.1 pg (27.0-34.8); MEAN CORPUSCULAR HGB CONC 33.7 g/dL (32.4-35.8); MEAN CORPUSCULAR VOLUME 89.1 fL (80-100); MEAN PLATELET VOLUME 6.5 fL (7.4-10.4); MONOCYTES # (AUTO) 0.28 x10^3/uL (0.2-0.8); MONOCYTES % (AUTO) 9 % (2-9); NEUTROPHILS % (AUTO) 65 % (42-75); PLATELET COUNT 287 x10^3/uL (130-400); RED BLOOD COUNT 4.54 x10^6/uL (3.82-5.3)
--- NOTE | 2020-01-05 18:30 | NUR ---
PT AMBULATED TO THE BR W/ A STEADY GAIT.
== END 2020-01-05 18:47 | disposition home or self-care (01) ==
LOC: ED 16:27
DX: G40.409 Other generalized epilepsy and epileptic syndromes, not intractable, without status epilepticus (principal); R55 Syncope and collapse; R94.31 Abnormal electrocardiogram [ECG] [EKG]; K21.9 Gastro-esophageal reflux disease without esophagitis
CPT/HCPCS: 36415; 80053; 80307; 85025; 93005; 96360; 96361; 99284; J7030

== ENCOUNTER 2020-10-16 11:49 | Outpatient (CLI) | payer OTHER ==
[~2020-10-16 11:49] MED LIST changes: -HYDR20TA23 PO; +HYDR20TA24 PO; -OXYC-302 PO; +OXYC1TAB14 PO; -PANT20TA3 PO; +PANT20TA4 PO; -ZOLP12.54 PO; +ZOLP12.56 PO
[2020-10-16] MEDS ORDERED: FENTANYL PF 100 MCG/2ML ONE ×2 (12:53)
[2020-10-16] MEDS ORDERED: MIDAZOLAM 1 MG/ML, 5ML ONE (12:53)
[2020-10-16] MEDS ORDERED: FLUMAZENIL 0.1 MG/1 ML, 5ML ONE (12:53)
[2020-10-16] MEDS ORDERED: NALOXONE 1 MG/ML, 2ML ONE (12:53)
== END 2020-10-16 23:59 | disposition home or self-care (01) ==
LOC: RAD 11:49
PROVIDERS: ATTEND Orthopaedic Surgery
DX: M25.512 Pain in left shoulder (principal); M75.52 Bursitis of left shoulder; Z88.6 Allergy status to analgesic agent; Z79.899 Other long term (current) drug therapy; Z87.891 Personal history of nicotine dependence; Z82.3 Family history of stroke; Z82.49 Family history of ischemic heart disease and other diseases of the circulatory system
CPT/HCPCS: 73221; 99156; 99157; J2250; J3010; J2310

== ENCOUNTER 2020-10-16 14:31 | Emergency (ER) | payer OTHER ==
[~2020-10-16] VITALS: Ht 152.4 cm; Wt 57.0 kg
[~2020-10-16 14:31] MED LIST changes: +HYDR20TA2 PO; -HYDR20TA24 PO
[2020-10-16 14:38] VITALS: BP 129/65
--- NOTE | 2020-10-16 14:44 | NUR ---
PT BROUGHT IN AFTER CODE 250 CALLED IN MRI. PT WAS GIVEN 100MCG OF FENTANYL AND 4MG OF VERSED FOR MRI OF SHOULDER. AFTER MRI PT WAS A&OX4, BUT WHEN WALKING TO THE BATHROOM PT STARTED JERKING AND FELL PER MRI RN. PER MRI RN PT HAS HX OF EPILEPSY AND PSEUDOSEIZURES. PT RESTING IN [facility], MONITORING IN PLACE, NADN AT THIS TIME, WTCM. PT A&OX4 AT THIS TIME. DR. HERRERA AT BS. , [facility], CELL PHONE NUMBER IS [phone].
[2020-10-16] MEDS ORDERED: LORazepam 2 MG/ML, 1ML ONE (14:49)
[2020-10-16] MEDS ORDERED: LORazepam 2 MG/ML, 1ML IV ONE (15:00)
== END 2020-10-16 15:37 | disposition home or self-care (01) ==
LOC: ED 15:18
DX: R56.9 Unspecified convulsions (principal); K21.9 Gastro-esophageal reflux disease without esophagitis
CPT/HCPCS: 96374; 99283; J2060

== ENCOUNTER → 2020-10-17 | Outpatient (CLI) | payer OTHER | END | disposition home or self-care (01) | LOC: CFH 12:25 | PROVIDERS: ATTEND Physician Assistant | DX: Z12.31 Encounter for screening mammogram for malignant neoplasm of breast (principal); Z98.82 Breast implant status | CPT/HCPCS: 77063; 77067 ==

== ENCOUNTER 2020-12-30 09:01 | Outpatient (CLI) | payer OTHER ==
[~2020-12-30 09:01] MED LIST changes: -HYDR20TA2 PO; +HYDR20TA24 PO
[2020-12-30] MEDS ORDERED: CHOL10003 PO (09:34)
[2020-12-30] MEDS ORDERED: IRON PO (09:34)
[2020-12-30] MEDS ORDERED: ESOM40CA PO (09:34)
[2020-12-30] MEDS ORDERED: ZONI100C29 PO (09:34)
[2020-12-30] MEDS ORDERED: CLON-364 PO (09:34)
== END 2020-12-30 23:59 | disposition home or self-care (01) ==
LOC: STAR 09:01
PROVIDERS: ATTEND Internal Medicine Gastroenterology
DX: Z01.812 Encounter for preprocedural laboratory examination (principal); Z20.822 Contact with and (suspected) exposure to COVID-19
CPT/HCPCS: 93005; U0003

== ENCOUNTER 2020-12-30 12:02 | Emergency (ER) | payer OTHER ==
[~2020-12-30] VITALS: Ht 160 cm; Wt 60.0 kg
[~2020-12-30 12:02] MED LIST changes: +CHOL10003 PO; +CLON-364 PO; +ESOM40CA PO; +IRON PO; -LACT1CAP37 PO; +LACT1CAP47 PO; +OXYC1TAB12 PO; -OXYC1TAB14 PO
--- NOTE | 2020-12-30 12:06 | NUR ---
No answer when called for triage.
--- NOTE | 2020-12-30 12:25 | NUR ---
BIB [facility] FROM HOME FOR SZ ACTIVITY VERSED 2.5 MG AND ZOFRAN 4 MG ADMINISTERED BY EMS. VERSED STOPPED SZ ACTIVITY. PT HAS HX OF SZ. ANSWERING QUESTIONS APPROPRIATELY WITH SOME STUTTERING. ERMD IN TO ASSESS PT. EKG COMPLETED. EMERGENCY MEDICINE PHYSICIAN ASSISTANT, BP AND SPO2 IN PLACE.
[2020-12-30] MEDS ORDERED: SODIUM CHLORIDE FLUSH 10ML SYR IVF ONE (12:30)
[2020-12-30 12:51] LABS: BASOPHILS % (AUTO) 1 % (0-1); EOSINOPHILS % (AUTO) 0 % (1-7); LYMPHOCYTES % (AUTO) 12 % (22-44); MEAN CORPUSCULAR HGB CONC 34.1 g/dL (32.4-35.8); MEAN PLATELET VOLUME 6.6 fL (7.4-10.4); MONOCYTES % (AUTO) 11 % (2-9); NEUTROPHILS % (AUTO) 77 % (42-75); PLATELET COUNT 274 x10^3/uL (130-400); RED BLOOD COUNT 4.82 x10^6/uL (3.82-5.3); RED CELL DISTRIBUTION WIDTH 13.2 % (9.6-15.2)
[2020-12-30] MEDS ORDERED: ONDANSETRON 2MG/ML, 2ML ONE (12:55)
--- NOTE | 2020-12-30 12:57 | NUR ---
PT MEDICATED FOR NAUSEA, DRY HEAVING IN BED. AT BEDSIDE. PT REPORTS COVID VACCINE LAST WEDNESDAY AND STARTING WEDNESDAY BACK PAIN, LEFT ARM PAIN, N/V.
[2020-12-30] MEDS ORDERED: ONDANSETRON 2MG/ML, 2ML IVPush ONE (13:00)
[2020-12-30 13:01] LABS: ALANINE AMINOTRANSFERASE 22 U/L (12-78); ANION GAP 7 mmol/L (5-15); CALCIUM 13.3 mg/dL (8.5-10.1); CHLORIDE 104 mmol/L (98-107); CREATININE 1.81 mg/dL (0.55-1.02)
[2020-12-30 13:03] LABS: ALKALINE PHOSPHATASE 138 U/L (45-117); BILIRUBIN,TOTAL 0.4 mg/dL (0.2-1.0); TOTAL PROTEIN 7.4 g/dL (6.4-8.2)
[2020-12-30 13:10] LABS: SALICYLATE LEVEL < 1.7 mg/dL (2.8-20.0)
[2020-12-30] MEDS ORDERED: PROCHLORPERAZINE 5 MG/ML, 2ML ONE (13:14)
[2020-12-30] MEDS ORDERED: PROCHLORPERAZINE 5 MG/ML, 2ML IVPush ONE (13:30)
[2020-12-30] MEDS ORDERED: SODIUM CHLORIDE 0.9% 1,000ML IVBOLUS ONE (13:30)
--- NOTE | 2020-12-30 14:00 | NUR ---
PT UP TO BEDSIDE COMMODE FOR UA, UA WALKED TO LAB. PT BACK IN BED. C/O CONTINUED AND INCREASED ABDOMINAL PAIN. DISCUSSION WITH ERMD REGARDING FURTHER ORDERS. REMAINS AT BEDSIDE.
[2020-12-30] MEDS ORDERED: KETOROLAC 30 MG/1 ML ONE (14:05)
--- NOTE | 2020-12-30 14:15 | NUR ---
PT REPORTS PAINFUL IV SITE. X2 NEW IV STARTS ATTEMPTED WITH FLASH SEEN, BUT ARM MOVEMENT DC'ED THESE CATHETERS. DISCUSSION WITH MD REGARDING IV, AND PLAN TO MEDICATE IM FOR PT. DURING IV ATTEMPTS PT REPORTS "I JUST WANT TO GO HOME." ENCOURAGED PT TO STAY. SIDE RAILS UP, CALL LIGHT IN REACH.
[2020-12-30] MEDS ORDERED: KETOROLAC 30 MG/1 ML IVPush ONE (14:30)
[2020-12-30] MEDS ORDERED: KETOROLAC 30 MG/1 ML IM ONE (14:30)
[2020-12-30 14:33] LABS: MICROSCOPIC AUTO
--- NOTE | 2020-12-30 14:33 | NUR ---
PT TO IMAGING.
--- NOTE | 2020-12-30 14:55 | NUR ---
REPORT TO NAINA TOLENTINO.
[2020-12-30 15:14] LABS: AMPHETAMINE SCREEN, URINE Negative (Negative); BARBITURATE SCREEN, URINE Negative (Negative); BENZODIAZEPINE SCREEN, URINE Positive (Negative); CANNABINOID SCREEN, URINE Negative (Negative); COCAINE SCREEN, URINE Negative (Negative); METHADONE SCREEN, URINE Negative (Negative); OPIATE SCREEN, URINE Negative (Negative)
[2020-12-30 16:21] VITALS: BP 142/70
== END 2020-12-30 16:23 | disposition home or self-care (01) ==
LOC: ED 12:57
DX: G40.909 Epilepsy, unspecified, not intractable, without status epilepticus (principal); R10.9 Unspecified abdominal pain; R11.2 Nausea with vomiting, unspecified; E86.0 Dehydration; G43.909 Migraine, unspecified, not intractable, without status migrainosus; K21.9 Gastro-esophageal reflux disease without esophagitis; Z90.49 Acquired absence of other specified parts of digestive tract
CPT/HCPCS: 36415; 74176; 80053; 80307; 81001; 85025; 93005; 96361; 96372; 96374; 96375; 99285; J0780; J1885; J2405; J7030; 80329; G0480

== ENCOUNTER → 2021-01-01 | Outpatient (CLI) | payer OTHER ==
[~2021-01-01] MED LIST changes: +LACT1CAP37 PO; -LACT1CAP47 PO; -OXYC1TAB12 PO; +OXYC1TAB14 PO
== END | disposition home or self-care (01) ==
LOC: RAD 06:28
PROVIDERS: ATTEND Internal Medicine Gastroenterology
DX: K44.9 Diaphragmatic hernia without obstruction or gangrene (principal); K21.9 Gastro-esophageal reflux disease without esophagitis; K22.70 Barrett's esophagus without dysplasia; R77.8 Other specified abnormalities of plasma proteins; K20.90 Esophagitis, unspecified without bleeding
CPT/HCPCS: 74240

== ENCOUNTER 2021-01-03 10:36 | Day surgery (SDC) | payer OTHER ==
[~2021-01-03] VITALS: Ht 152.4 cm; Wt 58.8 kg
[2021-01-03] MEDS ORDERED: CHLORHEXIDINE 15 ML UDC PO ONE (11:00)
[2021-01-03] MEDS ORDERED: LACTATED RINGERS 1,000 ML IV SCH (11:00)
[2021-01-03] MEDS ORDERED: LIDOCAINE-MPF 1%, 2ML INFIL ONE (11:00)
[2021-01-03 11:22] VITALS: BP 104/73
[2021-01-03] MEDS ORDERED: PROPOFOL 50 ML ONE (12:22)
== END 2021-01-03 16:00 | disposition home or self-care (01) ==
LOC: OUT 10:36
PROVIDERS: ATTEND Internal Medicine Gastroenterology
DX: Z12.11 Encounter for screening for malignant neoplasm of colon (principal); K63.89 Other specified diseases of intestine; K57.30 Diverticulosis of large intestine without perforation or abscess without bleeding; K91.89 Other postprocedural complications and disorders of digestive system; K21.00 Gastro-esophageal reflux disease with esophagitis, without bleeding; K44.9 Diaphragmatic hernia without obstruction or gangrene; K29.00 Acute gastritis without bleeding; K29.50 Unspecified chronic gastritis without bleeding; G40.909 Epilepsy, unspecified, not intractable, without status epilepticus; E78.5 Hyperlipidemia, unspecified; N18.30 Chronic kidney disease, stage 3 unspecified; Z79.899 Other long term (current) drug therapy; Z87.442 Personal history of urinary calculi; Z90.49 Acquired absence of other specified parts of digestive tract; Z98.890 Other specified postprocedural states
CPT/HCPCS: 43239; 45385; 88305; J2704; J7120